=== PATIENT | female | born 1995 | race Caucasian/White ===

== ENCOUNTER 2023-11-17 12:25 | Emergency (ER) | payer MEDICAID ==
[~2023-11-17] VITALS: Ht 160 cm; Wt 60.0 kg
[2023-11-17 12:43] VITALS: O2SAT 100
[2023-11-17 13:05] LABS: BASOPHILS % 0.4 % (0.0-2.0); EOSINOPHILS % 0.9 % (0.0-5.0); HEMATOCRIT. 43.4 % (36.0-48.0); HEMOGLOBIN. 14.8 g/dL (12.0-16.0); LYMPHOCYTES % 11.8 % (20.0-50.0); MEAN CORPUSCULAR HEMOGLOBIN 30.6 pg (28.0-32.0); MEAN CORPUSCULAR HGB CONC 34.1 g/dL (31.0-37.0); MEAN CORPUSCULAR VOLUME 89.6 fL (81.0-99.0); MEAN PLATELET VOLUME 9.1 fl (7.4-10.4); MONOCYTES % 5.8 % (2.0-8.0); NEUTROPHILS % 81.1 % (40.0-76.0); PLATELET 207 x1000/uL (130-400); RED BLOOD CELL COUNT 4.84 mill/uL (4.2-5.4); RED CELL DISTRIBUTION WIDTH 13.7 % (11.6-14.6); WHITE BLOOD COUNT 9.8 x1000/uL (4.5-11.0)
[2023-11-17 13:15] LABS: CHLORIDE 105 mEq/L (98-107); POTASSIUM 4.2 mEq/L (3.5-5.1); SODIUM 138 mEq/L (136-145)
[2023-11-17 13:16] LABS: CARBON DIOXIDE 27 mEq/L (21-32)
[2023-11-17 13:17] LABS: CALCIUM 10.2 mg/dL (8.7-10.4)
[2023-11-17 13:21] LABS: CREATININE 0.8 mg/dL (0.6-1.0)
[2023-11-17 13:22] LABS: GLUCOSE 104 mg/dL (70-105); UREA NITROGEN BLOOD 12 mg/dL (9-23)
[2023-11-17 13:29] LABS: TROPONIN I HIGH SENSITIVITY < 4 ng/L (3.0-34)
[2023-11-17 13:30] LABS: HCG SCREEN NEGATIVE
[2023-11-17] MEDS: VISCOUS LIDOCAINE 2% 15 ML UDC PO NR (15:15)
[2023-11-17] MEDS: FAMOTIDINE 20MG TABLET PO ONE (15:20)
[2023-11-17] MEDS: MAGNESIUM/ALUMINUM HYDROXIDE/SIMETHICONE 30ML UDC PO ONE (15:20)
[2023-11-17] MEDS ORDERED: FAMO-135 MT (16:32)
[2023-11-17] MEDS ORDERED: MAG-55 MT (16:32)
[2023-11-17 17:22] VITALS: BP 128/87; PULSE 85; RESP 18; TEMP 36.61404; O2SAT 100
== END 2023-11-17 17:23 | disposition home or self-care (01) ==
LOC: ER 12:25
DX: R07.89 Other chest pain (principal); R10.13 Epigastric pain; R06.02 Shortness of breath; Z20.822 Contact with and (suspected) exposure to COVID-19
CPT/HCPCS: 36415; 71045; 80048; 84484; 84703; 85025; 87426; 93005; 99285